=== PATIENT | female | born 1970 | race Caucasian/White ===

== ENCOUNTER 2022-08-23 10:32 | Emergency (ER) | payer OTHER ==
[2022-08-23 10:39] VITALS: BP 119/71
--- NOTE | 2022-08-23 10:44 | ED Physician Documentation ---
PD HPI LOWER EXT INJURY - Stated complaint Stated Complaint: RT ANKLE INJ - Chief complaint Chief Complaint: Trauma Ext - History obtained from History obtained from: Patient - History of Present Illness PD HPI LOW EXT INJURY LOCATION: Right, Ankle Type of injury: Twist (she states she slipped and fell, with twisting of her right ankle doing so. [place] and felt pain, snaps, and developed swelling soon after that has increased overnight, with bruising to dorsolateral proximal foot.) Where injury occurred: Home Timing - onset: Last night Review of Systems Skin: denies: Abrasion (s), Laceration (s) Musculoskeletal: reports: Extremity swelling Neurologic: denies: Focal weakness, Numbness PD PAST MEDICAL HISTORY - Past Medical History Cardiovascular: None Respiratory: None - Allergies Allergies/Adverse Reactions: Allergies Allergy/AdvReac Type Severity Reaction Status Date / Time Sulfa (Sulfonamide Allergy Rash Verified 08/23/22 10:36 Antibiotics) PD ED PE NORMAL - Vitals Vital signs reviewed: Yes - General General: Alert and oriented X 3, No acute distress, Well developed/nourished - Derm Derm: Normal color, Warm and dry - Extremities Extremities: Other (right ankle tender at lateral malleolus and toward the anterolateral aspect of ankle. There is bruising without tenderness extending to lateral metatarsals area. Medial ankle not tender. Achilles mild tender bur firm and intact. ) - Neuro Neuro: Alert and oriented X 3, No motor deficit, No sensory deficit, Normal speech Results - Vitals Vitals: Vital Signs - 24 hr 08/23/22 10:36 Temperature 36.5 C Heart Rate 73 Respiratory 16 Rate Blood Pressure 119/71 O2 Saturation 100 Oxygen O2 Source Room air - Rads (name of study) right ankle Relevant Findings:: Prelim report reviewed, EMP independent interpretation of test (lateral swelling. No noted fractures. ), See rad report PD Medical Decision Making - ED course Complexity details: reviewed results (no fractures on xray. ), re-evaluated patient (given walking boot as her ankle does seem likely to have torn/partial torn ligaments and muscles. This will be more supportive and will likely need to extend 4 weeks. ), considered differential (concern for fracture versus sprain (with partial/tears of ligaments, given the swelling and ecchymosis of it. ), d/w patient Departure - Departure Disposition: 01 Home, Self Care Clinical Impression: Ankle sprain Qualifiers: Encounter type: initial encounter Involved ligament of ankle: unspecified ligament Laterality: right Qualified Code(s): S93.401A - Sprain of unspecified ligament of right ankle, initial encounter Condition: Stable Instructions: ED Sprain Ankle W X Ray Follow-Up: Orthopedic Care [Provider Group] Comments: Your x-ray does not show any fractures. Obviously with the bruising swelling and pain, there is still injury with presumption of tearing of some muscles and ligaments (high-grade sprain). This can still take several weeks to a month or more to really heal up. Use the walking cast boot when up and around. Crutches for partial to no weightbearing initially and progress weightbearing as tolerated. Tylenol and/or ibuprofen as needed for pains. Ice elevate and rest your ankle often the next few days to reduce swelling. It may be prudent to follow-up with orthopedic clinic in about 1-1/2 weeks to ensure its healing adequately or if any other change in therapy needed. Call for an appointment. Discharge Date/Time: 08/23/22 12:29
--- NOTE | 2022-08-23 11:29 | XRAY Report ---
PROCEDURE: Ankle 3 View RT INDICATIONS: Trauma TECHNIQUE: 3 views of the ankle were acquired. COMPARISON: None. FINDINGS: Bones: No fractures or dislocations. Ankle mortise is normally aligned. No suspicious bony lesions . Soft tissues: Lateral malleolar edema. Achilles tendon appears normal. IMPRESSION: Lateral malleolar edema. No visualized acute fracture or dislocation. However, occult injury cannot b e excluded. Recommend short interval imaging follow-up in 7-10 days as clinically indicated for addit ional evaluation. Reviewed by: Sheba Peters MD on 08/23/2022 11:27 AM PDT Approved by: Sheba Peters MD on 08/23/2022 11:27 AM PDT Station ID: [id number]
== END 2022-08-23 12:29 | disposition home or self-care (01) ==
LOC: ED 10:32
DX: S93.401A Sprain of unspecified ligament of right ankle, initial encounter (principal); W01.0XXA Fall on same level from slipping, tripping and stumbling without subsequent striking against object, initial encounter
CPT/HCPCS: 99281; 99283

== ENCOUNTER 2023-10-16 07:19 | Outpatient (CLI) | payer SELFPAY ==
--- NOTE | 2023-10-16 09:02 | CT Report ---
PROCEDURE: CT heart coronary calcium scoring without contrast TECHNIQUE: MDCT non-contrast cardiac gated images were obtained from the son through the inferior margin of the heart. Calcium score was obtained by post-processing with external software. Automated exposure control was used to reduce patient radiation dose. INDICATION: CAD screening, low or intermediate risk COMPARISON: None. FINDINGS: Image quality: Excellent Agatston method: Total calcium score: 0 L main: 0 LAD: 0 LCX: 0 RCA: 0 Heart findings: Mitral annular calcifications: No significant calcifications. Aortic valve: No significant valvular calcifications. Chambers: No significant enlargement on this non-dynamic study. Pericardium: No effusion. Other findings (note the chest is incompletely imaged on this limited non-contrast study): Lungs and pleura: No pleural effusion. No actionable lung nodules. Mediastinum: No pathologic lymphadenopathy. Upper abdomen: Partially seen, unremarkable. Bones: No acute or suspicious abnormality. IMPRESSION: No coronary artery calcifications. Incidentals: None significant. Coronary artery calcium scores have been identified as an independent risk factor for future acute co ronary syndromes and correlate with the quantity of coronary atherosclerotic plaque. However, they do not correlate directly with the degree of stenosis. A low score does not exclude a significant coron sada artery stenosis. Risk of future coronary events should be assessed with individual patient risk factors and medical hi story. Consider correlation with risk percentiles using the JEAN (Multi-Ethnic Study of Atheroscleros is) calculator. CAC-DRS Categories: A0: 0, very low risk, consider repeat coronary calcium study every 3-7 years for surveillance. A1: 1-99, mildly increased risk, consider moderate-intensity statin A2: 100-299: moderately increased risk, consider moderate to high-intensity statin + ASA 81mg A3: >300: moderately to severely increased risk, consider high-intensity statin + ASA 81mg Reviewed by: Anthony Rome MD on 10/16/2023 9:00 AM PDT Approved by: Anthony Rome MD on 10/16/2023 9:00 AM PDT Station ID: [id number]
== END 2023-10-16 07:20 | disposition home or self-care (01) ==
LOC: DI 07:19
PROVIDERS: ATTEND Clinical Nurse Specialist Community Health/Public Health
DX: E78.5 Hyperlipidemia, unspecified (principal)